=== PATIENT | male | born 1990 | race Caucasian/White ===

== ENCOUNTER 2017-08-06 11:49 | Emergency (ER) | payer SELFPAY ==
[2017-08-06 12:01] VITALS: BP 110/90; PULSE 85; TEMP 97.9; BMI 25.7
--- NOTE | 2017-08-06 12:31 | PDOC ---
History of Present Illness - General Chief Complaint: Injury Stated Complaint: SWOLLEN LT FINGER Time Seen by Provider: 08/06/17 12:18 History Source: Patient Exam Limitations: No Limitations - History of Present Illness Initial Comments: 08/06/17 12:24 This is a 27-year-old male without significant past medical history who presents to the emergency department with pain and swelling to the third digit of his left hand and left wrist. Patient states he was at work yesterday when he tripped on something and fell into the grounds striking the dorsum of his left hand on the ground. He reports that over the past 24 hours swelling in his third digit has increased and he is developed increased pain to the left wrist. He denies numbness, tingling, loss of strength, fevers, chills, elbow or forearm pain. Past History - Past Medical History Allergies/Adverse Reactions: Allergies Allergy/AdvReac Type Severity Reaction Status Date / Time No Known Allergies Allergy Verified 08/06/17 12:01 Home Medications: Ambulatory Orders NK [No Known Home Medication] 08/06/17 COPD: No Thyroid Disease: No - Immunization History Immunization Up to Date: Yes - Suicide/Smoking/Psychosocial Hx Smoking History: Never smoked Number of Cigarettes Smoked Daily: 0 Information on smoking cessation initiated: No Hx Alcohol Use: No Drug/Substance Use Hx: No Substance Use Type: None Review of Systems - Review of Systems Able to Perform ROS?: Yes Is the patient limited Chinese proficient: No Constitutional: No: Symptoms Reported HEENTM: No: Symptoms Reported Respiratory: No: Symptoms reported Cardiac (ROS): No: Symptoms Reported ABD/GI: No: Symptoms Reported : No: Symptoms Reported Musculoskeletal: Yes: See HPI Integumentary: No: Symptoms Reported Neurological: No: Symptoms reported *Physical Exam - Vital Signs Last Vital Signs Temp Pulse Resp BP Pulse Ox 97.9 F 85 17 110/90 99 08/06/17 11:58 08/06/17 11:58 08/06/17 11:58 08/06/17 11:58 08/06/17 11:58 - Physical Exam General Appearance: Yes: Appropriately Dressed. No: Apparent Distress HEENT: positive: Normal ENT Inspection Neck: positive: Trachea midline, Supple Respiratory/Chest: positive: Lungs Clear, Normal Breath Sounds. negative: Respiratory Distress, Accessory Muscle Use Cardiovascular: positive: Regular Rhythm, Regular Rate, S1, S2. negative: Edema , Murmur Gastrointestinal/Abdominal: positive: Normal Bowel Sounds, Soft. negative: Tender Musculoskeletal: positive: Normal Inspection. negative: CVA Tenderness Extremity: positive: Swelling (Swelling to the third digit of the left hand DIP extending distal to the tip of finger. Cap refill within normal limits. Patient with full strength against resistance of both flexion and extension of digit.), Other (Ecchymotic area noted to left ulnar wrist. Patient tended to this area. No deformities, crepitus present on palpation. 6cmx0.25cm linear abrasion to left forearm) Integumentary: positive: Normal Color, Dry, Warm Neurologic: positive: Alert, Normal Response, Motor Strength 5/5 ED Treatment Course - RADIOLOGY Radiology Studies Ordered: Category Date Time Status WRIST W/HAND-LEFT* [RAD] Stat Radiology 08/06/17 12:22 Ordered Medical Decision Making - Medical Decision Making 08/06/17 12:29 CC: Left hand pain A/P: 27-year-old male without medical history with 1 day of left hand pain status post trip and fall. Swelling present on the third digit of the left hand from the left MCP extending to the distal tip of the finger. Patient able to fully flex and extend finger against resistance. Tenderness to the left wrist at the ulnar aspect. Ecchymosis noted over the tenderness. No palpable deformity or crepitus present. Patient able to fully extend and flex wrist against resistance. No pain to palpation over forearm or elbow. 6 cm x 0.25 cm linear abrasion noted to left mid forearm Soft tissue injury versus fracture versus intra-articular ecchymosis X-ray of left hand and wrist Tetanus shot Patient is refusing pain medication at this time. 08/06/17 13:43 X-ray of left hand and wrist as read by Dr. Miles: No sign of fracture, subluxation or bone structure. Blastic or lytic changes are not seen. There is no sign of foreign body or soft tissue air. There is some third digit swelling. If symptoms persist further imaging may be of help. Murtaza wrap Discharge I discussed the physical exam findings, ancillary test results and final diagnoses with the patient. I answered all of the patient's questions. The patient was satisfied with the care received and felt comfortable with the discharge plan and treatment plan. The patient will call his doctor within 96 hours to arrange follow-up and will return to the Emergency Department with any new, persistent or worsening symptoms. *DC/Admit/Observation/Transfer Diagnosis at time of Disposition: Wrist pain, left Forearm abrasion Qualifiers: Encounter type: initial encounter Laterality: left Qualified Code(s): S50.812A - Abrasion of left forearm, initial encounter Finger contusion Qualifiers: Encounter type: initial encounter Finger: middle finger Damage to nail status: without damage Laterality: left Qualified Code(s): S60.032A - Contusion of left middle finger without damage to nail, initial encounter - Discharge Dispostion Disposition: HOME Condition at time of disposition: Stable Admit: No - Referrals - Patient Instructions Additional Instructions: Rest your hand as much as possible. Apply ice for 20 minutes then remove for a minimum of 20 minutes before reapplying ice. Keep Murtaza wrap on your hands to help decrease swelling control pain. Keep hand elevated while sitting down. Do not go to work for the next 3 days. Return to emergency department for worsening pain, worsening swelling, numbness or tingling to the hand, inability to move hand or any other concerns. - Post Discharge Activity Forms/Work/School Notes: Back to Work
[2017-08-06] MEDS ORDERED: DIPHTH,PERTUSS(ACELL),TET 0.5 ML DISP.SYRIN IM ONE (12:32)
== END 2017-08-06 14:00 | disposition home or self-care (01) ==
LOC: JERFT 11:49
PROC: 3E0234Z Introduction of Serum, Toxoid and Vaccine into Muscle, Percutaneous Approach (ICD-10-PCS; principal; 2017-08-06)
DX: M25.532 Pain in left wrist (principal); W18.39XA Other fall on same level, initial encounter; Y93.89 Activity, other specified; Y92.9 Unspecified place or not applicable; S50.812A Abrasion of left forearm, initial encounter; S60.032A Contusion of left middle finger without damage to nail, initial encounter
CPT/HCPCS: 73110-TC-LR-FY; 73130-TC-LR-FY; 90715; 99281-25